=== PATIENT | male | born 1990 | race Two or more races ===

== ENCOUNTER 2016-12-21 19:58 | Emergency (ER) | payer SELFPAY ==
[~2016-12-21] VITALS: Ht 170.2 cm; Wt 68.0 kg
[2016-12-21 21:47] LABS: Basophils # (auto) 0.1 uL; Basophils % (auto) 0.7 % (0.0-2.0); Eosinophils # (auto) 0.1 uL; Eosinophils % (auto) 0.6 % (0.0-7.0); Hematocrit 49.8 % (41.0-53.0); Hemoglobin 16.5 g/dL (13.5-17.5); Lymphocytes % (auto) 18.5 % (10.0-50.0); Mean Corpuscular Hemoglobin 29.7 pg (28.0-32.0); Mean Corpuscular Hgb Conc. 33.2 g/dL (32.0-36.0); Mean Corpuscular Volume 89.5 fL (80.0-100.0); Mean Platelet Volume 9.4 fL (7.4-10.4); Monocytes # (auto) 0.6 uL; Neutrophils # (auto) 7.8 uL; Neutrophils % (auto) 74.2 % (37.0-80.0); Platelet Count (auto) 340 10^3/uL (140-450); Potassium 3.6 mmol/L (3.5-5.1); Red Cell Distribution Width 13.2 % (11.6-16.0); White Blood Cell 10.5 10^3/uL (4.4-10.8)
[2016-12-21 21:52] LABS: Albumin 4.7 g/dL (3.4-5.0); BUN/Creatinine Ratio 5.4
[2016-12-21 21:54] LABS: Bilirubin, Total 0.4 mg/dL (0.2-1.0); Total Protein 8.8 g/dL (6.4-8.2)
[2016-12-21 22:00] VITALS: BP 119/66
== END 2016-12-21 22:26 | disposition home or self-care (01) ==
LOC: ER 20:04
DX: S81.012A Laceration without foreign body, left knee, initial encounter (principal); S50.10XA Contusion of unspecified forearm, initial encounter; S00.83XA Contusion of other part of head, initial encounter; M54.2 Cervicalgia; R51 Headache; F10.10 Alcohol abuse, uncomplicated; V43.52XA Car driver injured in collision with other type car in traffic accident, initial encounter; Y93.89 Activity, other specified; Y92.89 Other specified places as the place of occurrence of the external cause; Y99.8 Other external cause status
CPT/HCPCS: 36415; 70450; 72125; 73562; 80053; 80320; 85025